=== PATIENT | female | born 1990 | race African-American/Black ===

== ENCOUNTER 2018-12-26 08:52 | Emergency (ER) | payer SELFPAY ==
[~2018-12-26] VITALS: Ht 170.2 cm; Wt 63.5 kg
--- NOTE | 2018-12-26 09:32 | Diagnostic Imaging Report ---
INDICATION: Pain FINDINGS: No fracture, dislocation or acute articular incongruity is demonstrated. IMPRESSION: No acute appearing abnormality. Dictated by: Dictated on workstation # [id number]
--- NOTE | 2018-12-26 10:08 | ED Lower Extremity ---
General Chief Complaint: Lower Extremity Stated Complaint: R FOOT PAIN Nursing Triage Note: PT CO OF R FOOT PAIN, DENIES INJURY Nursing Sepsis Screen: No Definite Risk Source: patient, family Exam Limitations: no limitations History of Present Illness Date Seen by Provider: Dec 26, 2018 Time Seen by Provider: 10:05 Initial Comments This 28-year-old female presents with a complaint of right foot pain that has been present for the last several days. Pain has been severe. It is sharp in nature. Patient's pain is made worse by attempting to weight-bear. Patient denies remote or recent trauma to the area. She denies other joint pain. She denies redness or swelling to the area. She has had no fever or chill. Her past medical history did not indicate gout or arthritis. There is a family history of joint disease and it appears to be degenerative arthritis. Allergies and Home Medications Allergies Coded Allergies: No Known Drug Allergies (Unverified , 12/26/18) Home Medications No Active Prescriptions or Reported Meds Patient Home Medication List Home Medication List Reviewed: Yes Review of Systems Constitutional: no symptoms reported EENTM: no symptoms reported Respiratory: No cough Cardiovascular: No chest pain Gastrointestinal: No abdominal pain, No nausea Genitourinary: No dysuria, No frequency Musculoskeletal: see HPI, other (right medial foot pain) Skin: no symptoms reported Psychiatric/Neurological: No Symptoms Reported Past Imqwcbr-Cziehc-Jmdzkr Hx Past Med/Social Hx: Reviewed Nursing Past Med/Soc Hx Patient Social History Alcohol Use: Rarely Uses Recreational Drug Use: No Smoking Status: Never a Smoker Recent Foreign Travel: No Contact w/Someone Who Travel: No Recent Infectious Disease Expo: No Recent Hopitalizations: No Past Medical History Surgeries: No Respiratory: No Cardiac: No Neurological: No Last Menstrual Period: Dec 24, 2018 Genitourinary: No Gastrointestinal: No Musculoskeletal: No Endocrine: No HEENT: No Cancer: No Psychosocial: No Integumentary: No Blood Disorders: No Adverse Reaction/Blood Tranf: No Physical Exam Vital Signs Vital Signs - First Documented 12/26/18 09:10 Temp 97.4 Pulse 61 Resp 18 B/P (MAP) 119/78 (92) Pulse Ox 99 Capillary Refill : Less Than 3 Seconds Height, Weight, BMI Height: 5'7.00" Weight: 140lbs. oz. [id number]; BMI Method:Stated General Appearance: WD/WN, no apparent distress HEENT: normal ENT inspection Neck: normal inspection Cardiovascular: regular rate, rhythm Respiratory: lungs clear Gastrointestinal: normal bowel sounds Back: normal inspection Feet: right foot other (pain and tenderness to the medial aspect of the midportion of the right forefoot.) Neurologic/Tendon: normal sensation, normal motor functions Neurologic/Psychiatric: no motor/sensory deficits Skin: normal color, warm/dry Progress/Results/Core Measures Results/Orders Lab Results Laboratory Tests Test 12/26/18 10:16 Range/Units White Blood Count 4.1 L 4.3-11.0 10^3/uL Red Blood Count 4.45 4.35-5.85 10^6/uL Hemoglobin 12.1 11.5-16.0 G/DL Hematocrit 37 35-52 % Mean Corpuscular Volume 84 80-99 FL Mean Corpuscular Hemoglobin 27 25-34 PG Mean Corpuscular Hemoglobin Concent 33 32-36 G/DL Red Cell Distribution Width 14.0 10.0-14.5 % Platelet Count 350 130-400 10^3/uL Mean Platelet Volume 10.3 7.4-10.4 FL Neutrophils (%) (Auto) 49 42-75 % Lymphocytes (%) (Auto) 41 12-44 % Monocytes (%) (Auto) 8 0-12 % Eosinophils (%) (Auto) 2 0-10 % Basophils (%) (Auto) 1 0-10 % Neutrophils # (Auto) 2.0 1.8-7.8 X 10^3 Lymphocytes # (Auto) 1.7 1.0-4.0 X 10^3 Monocytes # (Auto) 0.3 0.0-1.0 X 10^3 Eosinophils # (Auto) 0.1 0.0-0.3 10^3/uL Basophils # (Auto) 0.0 0.0-0.1 10^3/uL Uric Acid 3.4 2.6-7.2 MG/DL My Orders Orders - JOSIAS VICKERS MD Foot, Right, 3 View (12/26/18 09:13) Erythrocyte Sedimentation Rate (12/26/18 10:02) Cbc With Automated Diff (12/26/18 10:02) Uric Acid (12/26/18 10:02) Hydrocodone/Apap 5/325 Tablet (Lortab 5 (12/26/18 10:15) Vital Signs/I&O 12/26/18 09:10 Temp 97.4 Pulse 61 Resp 18 B/P (MAP) 119/78 (92) Pulse Ox 99 Blood Pressure Mean: 92 Progress Progress Note : Time: 11:09 Progress Note The patient's x-ray was unremarkable. The patient's CBC and uric acid were normal. I reassured the patient. I gave her a prescription for a small amount of Vicodin for pain. I asked she follow up with her doctor tomorrow. I gave her a note for work for tomorrow. Departure Impression Primary Impression: Foot pain Qualified Codes: M79.671 - Pain in right foot Disposition: 01 HOME, SELF-CARE Condition: Improved Departure-Patient Inst. Decision time for Depature: 11:11 [address]errals: [facility]/SREEKANTH RODRIGUEZ,LOCAL PHYSICIAN (PCP) Primary Care Physician Patient Instructions: Metatarsalgia Add. Discharge Instructions: Vicodin for pain. [facility]. No work tomorrow. Return of any problems or questions. All discharge instructions reviewed with patient and/or family. Voiced understanding. Scripts No Active Prescriptions or Reported Meds JOSIAS VICKERS MD Dec 26, 2018 10:08
[2018-12-26] MEDS ORDERED: HYDROcodone/APAP 5 MG/325 MG (LORTAB) TAB PO ONE (10:15)
[2018-12-26 10:25] LABS: BASOPHILS % (AUTO) 1 % (0-10); EOSINOPHILS # (AUTO) 0.1 10^3/uL (0.0-0.3); EOSINOPHILS % (AUTO) 2 % (0-10); HEMATOCRIT 37 % (35-52); HEMOGLOBIN 12.1 G/DL (11.5-16.0); LYMPHOCYTES # (AUTO) 1.7 X 10^3 (1.0-4.0); LYMPHOCYTES % (AUTO) 41 % (12-44); MEAN CORPUSCULAR HEMOGLOBIN 27 PG (25-34); MEAN CORPUSCULAR HGB CONC 33 G/DL (32-36); MEAN CORPUSCULAR VOLUME 84 FL (80-99); MEAN PLATELET VOLUME 10.3 FL (7.4-10.4); MONOCYTES # (AUTO) 0.3 X 10^3 (0.0-1.0); MONOCYTES % (AUTO) 8 % (0-12); NEUTROPHILS % (AUTO) 49 % (42-75); PLATELET COUNT 350 10^3/uL (130-400); WHITE BLOOD COUNT 4.1 10^3/uL (4.3-11.0)
[2018-12-26 11:17] LABS: ERYTHROCYTE SEDIMENTATION RATE 9 MM/HR (0-20)
[2018-12-26 11:18] VITALS: BP 119/78
== END 2018-12-26 11:18 | disposition home or self-care (01) ==
LOC: ER 08:54
DX: M79.671 Pain in right foot (principal)
CPT/HCPCS: 36415; 73630; 84550; 85025; 85652

== ENCOUNTER 2020-08-17 16:13 | Emergency (ER) | payer SELFPAY ==
[~2020-08-17] VITALS: Ht 170.2 cm; Wt 65.7 kg
--- NOTE | 2020-08-17 17:00 | ED Cough/URI ---
General Chief Complaint: Cough/Cold/Flu Symptoms Stated Complaint: COUGH;CHEST TIGHTNESS Nursing Triage Note: PT AMB TO [facility] 9 WITH COMPLAINT OF COUGH THAT STARTED LAST THURSDAY. STATES LAST NIGHT STARTED WITH CHEST TIGHTNESS. DENIES FEVER. Sepsis Screen: No Definite Risk Source: patient Exam Limitations: no limitations History of Present Illness Date Seen by Provider: Aug 17, 2020 Time Seen by Provider: 16:37 Timing/Duration: week Severity/Quality: productive cough, other (Runny nose, mild sore throat, chest tightness) Associated Symptoms: chest pain/soreness, cough, nasal congestion, nasal drainage, sore throat (Mild) Allergies and Home Medications Allergies Coded Allergies: No Known Drug Allergies (Unverified , 12/26/18) Home Medications No Active Prescriptions or Reported Meds Patient Home Medication List Home Medication List Reviewed: Yes Review of Systems Review of Systems Constitutional: no symptoms reported EENTM: nose congestion, throat pain Respiratory: cough, short of breath Cardiovascular: no symptoms reported Gastrointestinal: no symptoms reported Genitourinary: no symptoms reported Musculoskeletal: no symptoms reported Skin: rash (Rash consistent with tinea versicolor noted to neck and anterior chest wall) Psychiatric/Neurological: Denies Headache All Other Systems Reviewed Negative Unless Noted: Yes Past Cfszcoj-Trudcu-Xkvxrs Hx Patient Social History Alcohol Use: Occasionally Uses Recreational Drug Use: Yes Drug of Choice: POT Smoking Status: Never a Smoker Recent Foreign Travel: No Contact w/Someone Who Travel: No Recent Infectious Disease Expo: No Recent Hopitalizations: No Immunizations Up To Date Tetanus Booster (TDap): Unknown PED Vaccines UTD: Yes Past Medical History Surgeries: No Respiratory: No Cardiac: No Neurological: No Genitourinary: No Gastrointestinal: No Musculoskeletal: No Endocrine: No HEENT: No Cancer: No Psychosocial: No Integumentary: No Blood Disorders: No Adverse Reaction/Blood Tranf: No Physical Exam Vital Signs - First Documented 08/17/20 16:35 Temp 36.6 Pulse 94 Resp 20 B/P (MAP) 100/70 (80) Pulse Ox 97 O2 Delivery Room Air Capillary Refill : Less Than 3 Seconds Height: 5'7.00" Weight: 140lbs. oz. [id number]; 22.00 BMI Method:Stated General Appearance: WD/WN, no apparent distress Eyes: Bilateral Eye Normal Inspection, Bilateral Eye PERRL, Bilateral Eye EOMI HEENT: normal ENT inspection, TMs normal, pharynx normal Neck: non-tender, full range of motion, supple, normal inspection Respiratory: chest non-tender, lungs clear, normal breath sounds, no respiratory distress, no accessory muscle use Cardiovascular: normal peripheral pulses (Radial pulses 2+ bilaterally), regular rate, rhythm, no murmur Gastrointestinal: normal bowel sounds, soft Extremities: normal inspection Neurologic/Psychiatric: no motor/sensory deficits, alert, normal mood/affect, oriented x 3 Skin: normal color, warm/dry, rash (Patient has tenia versicolor) Progress/Results/Core Measures Suspected Sepsis Recent Fever Within 48 Hours: No Infection Criteria Present: None New/Unexplained Altered Menta: No Sepsis Screen: No Definite Risk SIRS Temperature: Pulse: 94 Respiratory Rate: 20 Blood Pressure 100 /70 Mean: 80 Results/Orders My Orders Orders - BERNARDINO CORONA MD Covid 19 Inhouse Test (08/17/20 16:47) Vital Signs/I&O 08/17/20 16:35 Temp 36.6 Pulse 94 Resp 20 B/P (MAP) 100/70 (80) Pulse Ox 97 O2 Delivery Room Air Capillary Refill : Less Than 3 Seconds Blood Pressure Mean: 80 Progress Note : Time: 16:58 Progress Note Patient seen and examined by me, 30-year-old female presents with URI type symptoms, cough, sore throat with chest tightness. Onset 2 days ago. 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 Patient will be rapid tested for COVID-19 here in the emergency department. Patient is in no acute distress. Vital signs are stable oxygenating 98 to 99% on room air. No respiratory distress is noted. Patient overall appears well. Departure Impression Primary Impression: Upper respiratory infection Qualified Codes: J06.9 - Acute upper respiratory infection, unspecified Disposition: 01 HOME, SELF-CARE Condition: Stable Departure-Patient Inst. Referrals: [facility] [place] [facility],LOCAL PHYSICIAN (PCP) Primary Care Physician Patient Instructions: Cough, Runny Nose, and the Common Cold (DC) Add. Discharge Instructions: Drink plenty of fluids to stay well-hydrated. Alternate Tylenol and ibuprofen for body aches and fever over 100.4. Follow-up with a primary care physician as needed. Return to the emergency room for reevaluation for any worsening, new or concerning symptoms. All discharge instructions reviewed with patient and/or family. Voiced understanding. Scripts No Active Prescriptions or Reported Meds BERNARDINO CORONA MD Aug 17, 2020 17:00
[2020-08-17 17:28] VITALS: BP 100/70
== END 2020-08-17 17:28 | disposition home or self-care (01) ==
LOC: EDUNIT# 16:13 → ER 16:15
DX: J06.9 Acute upper respiratory infection, unspecified (principal); Z20.828 Contact with and (suspected) exposure to other viral communicable diseases
CPT/HCPCS: 99282; U0002; 87635